=== PATIENT | female | born 2000 ===

== ENCOUNTER 2025-04-19 13:45 | Observation (INO) | payer SELFPAY ==
[2025-04-19] VITALS (17 sets, daily range): BP systolic 127; BP diastolic 75; PULSE 70–83; RESP 20–97; TEMP 36.4; O2SAT 96–99; BMI 35.7
--- NOTE | 2025-04-19 14:41 | XR_ITS ---
Examination: Biophysical profile, ultrasound Date and time of exam: April 19, 2025 1512 hours INDICATION: Decreased movement with pelvic contractions today Technique: Multiple transabdominal sonographic images of the pelvis abdomen obtained. Attention is directed to the breathing movement, gross body movement, amniotic fluid volume and tone. Findings: Amniotic fluid index 6 cm Total biophysical profile is 8 of 8. breathing movement is 2. Gross body movement is 2. tone is 2. Qualitative amniotic fluid volume is 2 Impression: Biophysical profile is 8 of 8.
--- NOTE | 2025-04-19 14:42 | XR_ITS ---
Examination: Complete OB ultrasound greater than 14 weeks Date and time of exam: April 19, 2025 1519 hours INDICATIONS: Decreased movement with pelvic contractions today Findings: Viable intrauterine single fetus with single amniotic sac presentation cephalic spine maternal right Cardiac motion 121 BPM Placenta maternal right grade 3 Umbilical cord insertion 3 vessel seen Amniotic fluid index 5.9 cm spine maternal right Cervix 3.6 cm Ovaries obscured by bowel gas. Composite estimated gestational age based on BPD, head circumference, abdominal circumference, femur length is 36 weeks 3 days Estimated weight 3089 g. Survey of intracranial anatomy, spinal anatomy, abdominal anatomy, four-chamber heart performed with no abnormalities identified. Impression: Viable intrauterine gestation cephalic presentation.
== END 2025-04-19 16:40 | disposition home or self-care (01) ==
PROVIDERS: Admitting Provider Obstetrics & Gynecology; Visit Provider Obstetrics & Gynecology
DX: O47.03 False labor before 37 completed weeks of gestation, third trimester (principal); Z3A.36 36 weeks gestation of pregnancy
CPT/HCPCS: 59025; 59899; 76805; 76819